=== PATIENT | male | born 1955 | race Caucasian/White ===

== ENCOUNTER 2020-03-27 02:31 | Inpatient (IN) ==
[2020-03-27] MEDS ORDERED: oxyCODONE SR 15 mg TAB PO ONE (05:02)
[2020-03-27 11:26] LABS: ABS Basophils 0.1 10^3/ul (0-0.2); ABS Eosinophils 0.2 10^3/ul (0-0.6); ABS Lymphocytes 3.5 10^3/ul (1.0-4.8); ABS Monocytes 0.7 10^3/ul (0-0.8); ABS Neutrophils 5.1 10^3/ul (1.5-7.7); Eosinophil % 2.3 %; Hematocrit 44 % (42-52); Hemoglobin 15.2 g/dL (14.0-18.0); Lymphocyte % 36.5 %; Mean Corpuscular HGB Conc 35 g/dL (31-36); Mean Corpuscular Hemoglobin 30 pg (27-31); Mean Corpuscular Volume 88 fL (80-94); Mean Platelet Volume 9.6 fL (7.4-10.4); Platelet Count 409 10^3/uL (150-450); Red Blood Count 5.02 10^6 /uL (4.18-5.48); Red Cell Distribution Width 15 % (10-15); White Blood Count 9.6 10^3/uL (3.5-10.8)
[2020-03-27 12:13] LABS: Anion Gap 6 mmol/L (2-11); CO2 Carbon Dioxide 27 mmol/L (22-32); Chloride 101 mmol/L (101-111); Sodium 134 mmol/L (135-145)
[2020-03-27 12:14] LABS: ALT 19 U/L (7-52); Albumin 4.5 g/dL (3.2-5.2); Albumin/Globulin Ratio 1.7 (1-3); Alkaline Phosphatase 50 U/L (34-104); Blood Urea Nitrogen 14 mg/dL (6-24); Calcium 9.1 mg/dL (8.6-10.3); EGFR Non-African American 75.2 (>60); Globulin 2.6 g/dL (2-4); Glucose 182 mg/dL (70-100); Total Protein 7.1 g/dL (6.4-8.9)
[2020-03-27 13:27] LABS: Potassium Redraw 4.5 mmol/L (3.5-5.0)
[2020-03-27] MEDS ORDERED: Dextrose 50% VIAL 50 ml IV PRN (20:19)
[2020-03-27] MEDS: oxyCODONE SR 15 mg TAB PO SCH (20:34)
[2020-03-27] MEDS ORDERED: Insulin GLARGINE 100 un/ml 10 ml VIAL SUBCUT SCH (21:00)
[2020-03-28 06:35] LABS: BUN/Creatinine Ratio 14.1 (8-20); Calcium 9.6 mg/dL (8.6-10.3); EGFR African American 121.3 (>60); EGFR Non-African American 100.2 (>60); HDL Cholesterol 35.1 mg/dL; Potassium 4.2 mmol/L (3.5-5.0)
[2020-03-28 06:50] LABS: TSH Ultra Thyroid Stim Horm 1.29 mcIU/mL (0.34-5.60)
[2020-03-28] MEDS ORDERED: Perflutren Lipid Microsphere 3 ML VIAL ONE (08:17)
[2020-03-28] MEDS: oxyCODONE SR 15 mg TAB PO SCH ×2 (08:33→21:01)
[2020-03-28] MEDS ORDERED: Insulin GLARGINE 100 un/ml 10 ml VIAL SUBCUT SCH (21:00)
[2020-03-29] MEDS: oxyCODONE SR 15 mg TAB PO SCH (07:53)
[2020-03-29 08:01] VITALS: BP 138/86
== END 2020-03-29 11:06 | disposition home or self-care (01) | DRG 66 ==
LOC: ED 02:31 → MEDTELE 05:23
PROVIDERS: ADMIT Internal Medicine; ATTEND Internal Medicine